=== PATIENT | female | born 1965 | race Hispanic/Latino ===

== ENCOUNTER 2018-03-17 09:47 | Emergency (ER) | payer MEDICAID ==
[2018-03-17 09:53] VITALS: BP 136/86
--- NOTE | 2018-03-17 11:06 | Emergency Department Report ---
Chief Complaint: Extremity Problem,Nontraumatic Stated Complaint: RIGHT KNEE PAIN Time Seen by Provider: 03/17/18 11:01 - HPI History of Present Illness: 52-year-old female presents to the emergency department with nontraumatic right knee pain that is really more from the lower thigh to the upper flores and is circumferential. There is some swelling but no skin color change. She has trouble moving it and bearing weight secondary to the pain. She has not taken anything for symptoms of her presentation. No recent travel or sick contacts at home. - ROS Review of Systems: Positive for right knee pain, swelling Negative for skin color change, fever - Exam Vital Signs: Vital Signs 03/17/18 09:51 Temperature 98 F Pulse Rate 88 Respiratory 16 Rate Blood Pressure 136/86 O2 Sat by Pulse 99 Oximetry Physical Exam: Patient is very tender to palpation to the circumferential right knee as well as the distal thigh and over the upper flores at the patellar tendon. There is some mild nonpitting swelling to the right knee when compared to the left. No skin color change. +2 over 4 right pedal pulses. MSE screening note: Focused history and physical exam performed. Due to findings the following was ordered: I will order an x-ray of the right knee as well as a Doppler venous ultrasound of the right lower extremity. ED Disposition for MSE Condition: Stable Referrals: BRENNA PARIS MD [Primary Care Provider] - 3-5 Days
--- NOTE | 2018-03-17 11:12 | Emergency Department Report ---
ED Lower Extremity HPI - General Chief Complaint: Extremity Problem,Nontraumatic Stated Complaint: RIGHT KNEE PAIN Time Seen by Provider: 03/17/18 11:01 Source: patient, family Mode of arrival: Wheelchair Limitations: No Limitations - History of Present Illness Initial Comments: This is a 52-year-old female nontoxic, well nourished in appearance, no acute signs of distress presents to the ED with c/o of right knee pain x2 days. Patient denies any trauma to the region. Patient stated that she has been walking a lot. Patient stated that symptoms has started gradually of pain. Patient denies any joint redness, joint swelling, fever, chills, nausea, vomiting, chest pain or shortness breath. Patient denies abnormal or decreased gait. Patient denies any allergies or PMH. MD Complaint: knee injury -: days(s) (2) Injury: Knee: Right Place: home Severity: mild Severity scale (0 -10): 8 Improves With: immobilization Worsens With: movement, palpation Associated Symptoms: able to partially bear weight, ambulatory. denies: snap/ pop sensation, swelling, numbness, tingling, unable to bear weight - Related Data Previous Rx's Medication Instructions Recorded Last Taken Type HYDROcodone/APAP 10-325 [[place] 1 each PO Q6HR PRN #14 tablet 03/26/14 Unknown Rx 10/325] Ibuprofen [Motrin 800 MG tab] 800 mg PO Q8H #30 tablet 03/26/14 Unknown Rx Ibuprofen [Motrin] 600 mg PO Q8H PRN #30 tablet 03/17/18 Unknown Rx Allergies Allergy/AdvReac Type Severity Reaction Status Date / Time No Known Allergies Allergy Unverified 03/25/14 21:42 ED Review of Systems ROS: Stated complaint: RIGHT KNEE PAIN Other details as noted in HPI Constitutional: denies: chills, fever Eyes: denies: eye pain, eye discharge, vision change ENT: denies: ear pain, throat pain Respiratory: denies: cough, shortness of breath, wheezing Cardiovascular: denies: chest pain, palpitations Endocrine: no symptoms reported Gastrointestinal: denies: abdominal pain, nausea, diarrhea Genitourinary: denies: urgency, dysuria, discharge Musculoskeletal: arthralgia. denies: back pain, joint swelling Skin: denies: rash, lesions Neurological: denies: headache, weakness, paresthesias Psychiatric: denies: anxiety, depression Hematological/Lymphatic: denies: easy bleeding, easy bruising ED Past Medical Hx - Past Medical History Previous Medical History?: No - Surgical History Past Surgical History?: No Additional Surgical History: tonsillectomy PE tubes - Social History Smoking Status: Current Every Day Smoker Substance Use Type: None - Medications Home Medications: Home Medications Medication Instructions Recorded Confirmed Last Taken Type HYDROcodone/APAP 10-325 [[place] 1 each PO Q6HR PRN #14 tablet 03/26/14 Unknown Rx 10/325] Ibuprofen [Motrin 800 MG tab] 800 mg PO Q8H #30 tablet 03/26/14 Unknown Rx Ibuprofen [Motrin] 600 mg PO Q8H PRN #30 tablet 03/17/18 Unknown Rx ED Physical Exam - General Limitations: No Limitations General appearance: alert, in no apparent distress - Head Head exam: Present: atraumatic, normocephalic - Eye Eye exam: Present: normal appearance Pupils: Present: normal accommodation - ENT ENT exam: Present: normal exam, mucous membranes moist - Neck Neck exam: Present: normal inspection, full ROM - Respiratory Respiratory exam: Present: normal lung sounds bilaterally. Absent: respiratory distress - Cardiovascular Cardiovascular Exam: Present: regular rate, normal rhythm. Absent: systolic murmur, diastolic murmur, rubs, gallop - GI/Abdominal GI/Abdominal exam: Present: soft, normal bowel sounds - Extremities Exam Extremities exam: Present: normal inspection, full ROM, tenderness, normal capillary refill. Absent: pedal edema, joint swelling, calf tenderness - Expanded Lower Extremity Exam Right Hip exam: Present: normal inspection, full ROM Upper Leg exam: Present: normal inspection, full ROM Knee exam: Present: normal inspection, full ROM, tenderness, swelling, full knee extension. Absent: abrasion, laceration, ecchymosis, deformity, crepidus, dislocation, erythema, effusion, pain w/ pronation/supination, posterior draw sign, pain/laxity with valgus, pain/laxity with varus Lower Leg exam: Present: normal inspection, full ROM, tenderness (lateral calf pain). Absent: swelling, abrasion, laceration, ecchymosis, deformity, crepidus , dislocation, erythema, palpable cord, Sebastian's sign Ankle exam: Present: normal inspection, full ROM Foot/Toe exam: Present: normal inspection, full ROM Neuro vascular tendon exam: Present: no vascular compromise. Absent: pulse deficit, abnormal cap refill, motor deficit, sensory deficit, tendon deficit, extremity cold to touch, pallor, abnormal 2-point discrimination, decreased fine /light touch, foot drop, peroneal nerve deficit, significant pain with passive ROM of distal joint Gait: Positive: observed and limited by pain - Back Exam Back exam: Present: normal inspection, full ROM - Neurological Exam Neurological exam: Present: alert, oriented X3, normal gait - Psychiatric Psychiatric exam: Present: normal affect, normal mood - Skin Skin exam: Present: warm, dry, intact, normal color. Absent: rash ED Course Vital Signs 03/17/18 09:51 Temperature 98 F Pulse Rate 88 Respiratory 16 Rate Blood Pressure 136/86 O2 Sat by Pulse 99 Oximetry - Reevaluation(s) Reevaluation #1: 03/17/18 12:17 Patient is speaking in full sentences with no signs of distress noted. - Consultations Consultation #1: 03/17/18 12:18 Patient has been consulted with Dr. Dominguez about patient history, physical exam, and Doppler/Xray and examined and screened patient and agrees to ED plan of care and discharge plan of care. ED Lower Extremity MDM - Medical Decision Making This is a 52-year-old female that presents with right knee strain. Patient is stable and was examined by me and Dr. Dominguez. I referred patient to an orthopedic doctor for further evaluation for possible MRI. X-ray has been obtained and dictated by the radiologist and report faxed with normal exam by Dr. Romano. Doppler US obtained and negative for DVT/SVT. Patient is notified of the x-ray report with noted by the patient. Patient does have normal gait with no tenderness and no joint swelling. No ecchymosis. no joint redness or swelling. Not warm to touch. No signs of cellulites present. Patient was instructed to RICE therapy. Patient received Motrin for pain. Patient is discharged with Motrin. At time of discharge, the patient does not seem toxic or ill in appearance. No acute signs of distress noted. Patient agrees to discharge treatment plan of care. No further questions noted by the patient. Critical care attestation.: If time is entered above; I have spent that time in minutes in the direct care of this critically ill patient, excluding procedure time. ED Disposition Clinical Impression: Strain of right knee Qualifiers: Encounter type: initial encounter Qualified Code(s): S86.911A - Strain of unspecified muscle(s) and tendon(s) at lower leg level, right leg, initial encounter Disposition: TO HOME OR SELFCARE Is pt being admited?: No Does the pt Need Aspirin: No Condition: Stable Instructions: Knee Pain (ED), RICE Therapy (ED), Ibuprofen (By mouth) Additional Instructions: Follow-up with a orthopedic doctor in 3-5 days or if symptoms worsen and continue return to emergency room as soon as possible. Prescriptions: Ibuprofen [Motrin] 600 mg PO Q8H PRN #30 tablet PRN Reason: Pain Referrals: BRENNA PARIS MD [Primary Care Provider] - 3-5 Days MEHDI FRIEDMAN MD [Staff Physician] - 3-[address] [facility] [Outside] - 3-5 Days [facility] [Outside] - 3-5 Days Forms: Work/School Release Form(ED)
[2018-03-17] MEDS ORDERED: MOTRIN PO ONE (12:16)
--- NOTE | 2018-03-19 12:57 | XRay Report ---
RIGHT KNEE, 3 views: History: Right knee pain. The bony architecture is intact without evidence of fracture or dislocation. A small osteochondroma is noted projecting laterally from the distal femoral metaphysis. No significant soft tissue abnormality is seen. IMPRESSION: No acute process is identified. Small osteochondroma.
== END 2018-03-17 13:28 | disposition home or self-care (01) ==
LOC: ED 09:47
DX: S86.911A Strain of unspecified muscle(s) and tendon(s) at lower leg level, right leg, initial encounter (principal); F17.200 Nicotine dependence, unspecified, uncomplicated; Z90.89 Acquired absence of other organs; X58.XXXA Exposure to other specified factors, initial encounter; Y93.89 Activity, other specified; Y99.8 Other external cause status; Y92.009 Unspecified place in unspecified non-institutional (private) residence as the place of occurrence of the external cause